=== PATIENT | female | born 1990 | race Caucasian/White ===

== ENCOUNTER → 2020-10-24 14:19 | Outpatient (BNVA) | payer MEDICAID, SELFPAY | PROVIDERS: Visit Provider Obstetrics & Gynecology ==

== ENCOUNTER → 2020-12-14 09:07 | Outpatient (BNVA) | payer OTHER, SELFPAY | PROVIDERS: Visit Provider Obstetrics & Gynecology | DX: Z30.09 Encounter for other general counseling and advice on contraception (principal) | CPT/HCPCS: 99212 ==

== ENCOUNTER 2020-12-20 07:33 | Day surgery (SDC) | payer OTHER, SELFPAY ==
[2020-12-14 13:48] VITALS: BMI 30.8
--- NOTE | 2020-12-18 10:58 | HO.ANESPROP2 ---
Documented by User: Luz Silver 12/18/20 11:00 HPI - Anesthesia Eval Consult details Narrative: 30yo F for Bilateral Salpingectomy Laparoscopic *reports bradycardia with opioids* PMFSH Past Medical History Medical History (Updated 12/20/20 @ 08:51 by Chelsea Montez) Increased BMI Patient denies medical problems Surgical History Surgical History Hx laparoscopic cholecystectomy Social History Social History (Updated 12/20/20 @ 08:52 by Chelsea Montez) Patient Tobacco Use Status: Tobacco use Unknown Use of substances other than those prescribed or required for medical reasons: Yes Substance Use Type: Marijuana Substance Use Frequency: Daily Last Used Substance: Hours (ago) Last Used Substance Other:: Yesterday night Currently Displaying Signs/Symptoms of Drug Intoxication Withdrawal: No Are you DNR?: No Advance Directives Information Provided: No Patient : No FDLMP: 12/14/20 Gender identity: female Meds Allergies Allergy/AdvReac Type Severity Reaction Status Date / Time Opioids - Morphine Analogues Allergy Mild low heart Verified 12/14/20 09:14 rate Home Medications Medication Instructions Recorded Confirmed Last Taken Type levonorgestrel-ethinyl estradiol 1 tab PO DAILY 10/24/20 12/14/20 Unknown History 0.1 mg-20 mcg tablet Exam Exam Date and Time: December 18, 2020 1058 Height,Weight and Vital Signs: Height 5 ft 7 in Weight 89.358 kg Assessment and Plan Assessment Anesthesia Assessment: Chart Reviewed Documented by User: Chelsea Montez 12/20/20 08:53 PMFSH Past Medical History Medical History (Updated 12/20/20 @ 08:51 by Chelsea Montez) Increased BMI Patient denies medical problems Family History Family history of problems with anesthesia: No Surgical History Surgical History Hx laparoscopic cholecystectomy History of Problems with Anesthesia: No Social History Social History (Updated 12/20/20 @ 08:52 by Chelsea Montez) Patient Tobacco Use Status: Tobacco use Unknown Use of substances other than those prescribed or required for medical reasons: Yes Substance Use Type: Marijuana Substance Use Frequency: Daily Last Used Substance: Hours (ago) Last Used Substance Other:: Yesterday night Currently Displaying Signs/Symptoms of Drug Intoxication Withdrawal: No Are you DNR?: No Advance Directives Information Provided: No Patient : No FDLMP: 12/14/20 Gender identity: female Meds Allergies Allergy/AdvReac Type Severity Reaction Status Date / Time Opioids - Morphine Analogues Allergy Mild low heart Verified 12/14/20 09:14 rate Home Medications Medication Instructions Recorded Confirmed Last Taken Type levonorgestrel-ethinyl estradiol 1 tab PO DAILY 10/24/20 12/14/20 Unknown History 0.1 mg-20 mcg tablet Exam Height,Weight and Vital Signs: Vital Signs Temp Pulse Resp BP Pulse Ox 12/20/20 07:48 99.1 F 72 16 118/80 98 Pertinent Lab Results Pertinent Lab Results: Lab Results 12/20/20 Range/Units 07:40 Urine Test NEGATIVE (NEGATIVE) Airway Mallampati Class: II TM Dist: >3cm Neck ROM: Full Heart: RRR Lungs: CTAB Assessment and Plan Assessment Anesthesia Assessment: Anesthesia Plan Discussed and Chart Reviewed Final Anesthetic Review NPO: Yes ASA Class: II Final Preanesthetic Review: No Changes in Pt Med Stat, Meds/Allgs Chart Reviewed, Consent Obtained/Reviewed and Anes Risks/Benef Reviewed Patient Risk: Low Procedure Risk: Low Assessment/Block/Sedation in SS: Assess/Block/Sedation-SS Anesthetic Plan Anesthetic Plan: GA Disposition: Standard PACU
[2020-12-20] VITALS (8 sets, daily range): BP systolic 118–140; BP diastolic 68–81; PULSE 41–72; RESP 10–16; TEMP 36.2–37.3; O2SAT 98–100
[2020-12-20 07:55] LABS: UPreg QC Valid YES; Urine Pregnancy NEGATIVE (NEGATIVE)
[2020-12-20] MEDS: Acetaminophen 325 MG TABLET 650 MG PO (07:57)
[2020-12-20] MEDS: Lactated Ringers 1,000 ML 100 ML IVCONT (07:58)
--- NOTE | 2020-12-20 08:27 | MHC.SHP ---
Pre-Procedural Eval Section A The patient is an INPATIENT: No Changes since office visit: No Cold of Flu in the past 2 weeks, No New Medical Problems, No Changes in Medication and No Patient answered all questions The History & Physical has been completed within 30 days and I have reviewed it.: Yes Section B Chief Complaint: unwanted fertility Allergies: Allergies Allergy/AdvReac Type Severity Reaction Status Date / Time Opioids - Morphine Analogues Allergy Mild low heart Verified 12/14/20 09:14 rate Plan I have reviewed the history and physical and performed a pertinent physical examination on my patient. No changes have occurred unless specified.
--- NOTE | 2020-12-20 08:27 | W.PM.OPN ---
Operative Note Operative Note Date of Service: 12/20/20 Narrative: Pre-Procedure Diagnosis: unwanted fertility Post-Procedure Diagnosis: unwanted fertility Procedures performed: Laparoscopic bilateral salpingectomy Medical Specialist: none Complications: none Specimens: bilateral fallopian tubes Disposition: Pacu Ms. Hutchinson is a 30yo who has completed her family planning and desires a permanent form of sterilization. Surgical Risks: The patient was informed of the risks and benefits of the procedure. Risks included but were not limited to bleeding, infection, injury to the vulva, vagina, or cervix, and uterine perforation. The patient was counseled on the risk of sterilization failure being about 1% on average. The patient was informed that in the event a occurs, the risk of ectopic is increased. The patient expressed understanding of the risks involved, all questions were answered, and the patient consented to the procedure. The patient had valid sterilization consent at the time of the procedure. The patient was taken to the operating room where a time out was performed to confirm correct patient and correct procedure. General anesthesia was established. The patient was then positioned on the operating table in the dorsal lithotomy position with the legs supported using stirrups. All pressure points were padded and a Mandy hugger was placed to maintain control of core body temperature. The patient was then prepped and draped in the usual sterile fashion. A red rubber catheter was inserted and the bladder was drained. A sponge stick was placed in the vagina for uterine manipulation. Attention was turned to the abdomen where a 5mm vertical infraumbilical incision was made. The 5mm trocar was introduced under direct visualization using the laparoscopy within the sleeve of the trocar. After intra-abdominal placement had been confirmed, the trocar was removed leaving the sleeve in place. The camera was introduced and pneumoperitoneum was established using carbon dioxide. Inspection of the abdominal cavity showed no gross abnormalities and there was no evidence of injury to the bowel, bladder, or vasculature. Attention was turned to the pelvis. The patient was placed into Trendelenburg position. The fallopian tubes and ovaries were visualized bilaterally. A paratuba cyst was noted on the right fallopian tube; no other abnormalities were noted. A small incision was made on the patient's left approximately 2cm superior to and 2cm medial to the left ASIS. A 5mm trocar was introduced through this incision under direct visualization with the laparoscope. A small incision was then made on the patient's right approximately 2cm superior to and 2cm medial to the right ASIS. A 5mm trocar was introduced through this incision under direct visualization with the laparoscope. The fallopian tubes were inspected bilaterally and the fimbriated ends of the fallopian tube were visualized bilaterally. The distal end of the left tube was grasped and lifted up and being careful to avoid the ovarian vessels, salpingectomy was performed walking the Ligasure device from the distal to the medial end of the tube, where it was cauterized and cut from the uterus at the cornua and removed through the trocar. The identical procedure was then performed on the right. The tubes were sent to pathology for analysis. The pneumoperitoneum was then evacuated. The laparoscope was removed and the trocar sleeves were removed. The sponge stick was removed from the vagina. The skin incisions were closed each with a single interrupted 3-0 Vicryl suture and Dermabond was applied. Good hemostasis was confirmed. The patient was transferred to the recovery room in stable condition. All needle, sponge, and instrument counts were noted to be correct x2 at the end of the procedure.
[2020-12-20] MEDS: fentaNYL citrate/PF 100 MCG/2 ML VIAL 25 MCG IVPUSH (10:18)
[2020-12-20] MEDS: oxyCODONE HCl Immed Release 5 MG TABLET PO (10:26)
== END 2020-12-20 11:05 | disposition home or self-care (01) ==
LOC: HO.SSS 07:34
PROVIDERS: Nurse Practitioner; PCP Internal Medicine; Visit Provider Obstetrics & Gynecology
PROC: (CPT 58661; principal; 2020-12-20 09:00)
DX: Z30.2 Encounter for sterilization (principal); N83.8 Other noninflammatory disorders of ovary, fallopian tube and broad ligament; Z90.49 Acquired absence of other specified parts of digestive tract; F12.90 Cannabis use, unspecified, uncomplicated; Z79.899 Other long term (current) drug therapy; Z88.8 Allergy status to other drugs, medicaments and biological substances
CPT/HCPCS: 58661; 81025; 88302; J1100; J1885; J2250; J2405; J3010

== ENCOUNTER → 2021-01-04 11:30 | Outpatient (BNVA) | payer OTHER, SELFPAY | PROVIDERS: Visit Provider Obstetrics & Gynecology | DX: Z09 Encounter for follow-up examination after completed treatment for conditions other than malignant neoplasm (principal); Z98.890 Other specified postprocedural states | CPT/HCPCS: 99212 ==